=== PATIENT | female | born 1995 | race African-American/Black ===

== ENCOUNTER 2023-07-31 13:21 | Emergency (ER) | payer MEDICAID ==
[~2023-07-31] VITALS: Ht 160 cm; Wt 91.0 kg
[2023-07-31 13:33] VITALS: O2SAT 88
[2023-07-31 13:54] LABS: CLARITY URINE CLOUDY (CLEAR); COLOR URINE YELLOW (YELLOW); GLUCOSE URINE NEGATIVE (NEGATIVE); KETONES URINE NEGATIVE (NEGATIVE); LEUKOCYTE ESTERASE URINE NEGATIVE (NEGATIVE); NITRITE URINE POSITIVE (NEGATIVE); OCCULT BLOOD URINE NEGATIVE (NEGATIVE); PH URINE 7.5 (4.5-8.0); PROTEIN URINE NEGATIVE (NEGATIVE); SPECIFIC GRAVITY URINE 1.022 (1.005-1.030); UROBILINOGEN URINE 0.2 E.U./dL (0.2-1.0)
[2023-07-31 14:24] LABS: BACTERIA URINE 4+; SQUAMOUS EPITHELIAL CELL URINE 3+ /lpf (RARE/1+)
[2023-07-31 14:25] LABS: MUCUS URINE TRACE /lpf (< = 2+); WBC URINE 0-2 /hpf (0-2)
[2023-07-31 14:26] LABS: RBC URINE NONE SEEN /hpf (0-2)
[2023-07-31] MEDS ORDERED: CYCL5TAB PO (17:01)
[2023-07-31] MEDS ORDERED: SULF1TAB48 MT (17:01)
[2023-07-31] MEDS ORDERED: NAPR-681 PO (17:01)
[2023-07-31] MEDS ORDERED: IBUPROFEN 600MG TABLET PO STA (17:02)
[2023-07-31 18:16] VITALS: BP 125/75; PULSE 81; RESP 16; TEMP 98.6
== END 2023-07-31 18:37 | disposition home or self-care (01) ==
LOC: ER 13:21
DX: M54.6 Pain in thoracic spine (principal); M25.562 Pain in left knee; N39.0 Urinary tract infection, site not specified
CPT/HCPCS: 71045; 73562; 81003; 81025; 99284